=== PATIENT | female | born 1955 | race Caucasian/White ===

== ENCOUNTER 2016-12-24 15:39 | Inpatient (IN) | payer MEDICARE, MEDICAID ==
[~2016-12-24] VITALS: Ht 157.5 cm; Wt 123.4 kg
[~2016-12-24 15:39] MED LIST: AMLO10TA2 PO; BENA10TA2 PO; FENO160T PO; FLUT16SP BNOSTRILS; FLUT1DIS3 IH; FURO-144 PO; GLIP5TAB13 PO; IPRA0.2S9 IH; LORA10CA PO; MONT10TA22 PO; NEBI5TAB8 PO; POTA10TA15 PO; PROM6.25 PO; SITA100T PO
[2016-12-24 16:08] LABS: BASOPHILS % (AUTO) 0.5 % (0.0-2.0); DIFF TOTAL % 100 %; EOSINOPHILS # (AUTO) 0.1 /CMM (0.0-0.7); EOSINOPHILS % (AUTO) 1.9 % (0.0-6.0); HEMATOCRIT 31 % (33-45); HEMOGLOBIN 9.9 g/dL (11.5-14.8); LYMPHOCYTES # (AUTO) 1.6 /CMM (0.8-4.8); LYMPHOCYTES % (AUTO) 23.2 % (20.0-44.0); MEAN CORPUSCULAR HEMOGLOBIN 26 PG (26.0-33.0); MEAN CORPUSCULAR HGB CONC 32 g/dl (31.0-36.0); MEAN CORPUSCULAR VOLUME 80 fL (82-100); MONOCYTES # (AUTO) 0.6 /CMM (0.1-1.30); NEUTROPHILS # (AUTO) 4.8 /CMM (1.8-8.9); NEUTROPHILS % (AUTO) 66.4 % (43.0-81.0); PLATELET COUNT (AUTO) 263 /CMM (150-450); RED BLOOD CELL COUNT(AUTO) 3.87 MIL/uL (4.0-5.2); WHITE BLOOD COUNT (AUTO) 7.1 K/uL (4.3-11.0)
[2016-12-24 16:19] LABS: ANION GAP 14 (5-14); CARBON DIOXIDE 25 mmol/L (21-32); CHLORIDE 105 mmol/L (98-107); CREATININE 1.7 mg/dL (0.6-1.3); GFR 31 mL/min (>60); GLUCOSE 123 mg/dL (74-106); POTASSIUM 4.2 mmol/L (3.5-5.1); SODIUM SERUM 140 mmol/L (136-145); UREA NITROGEN, BLOOD 48 mg/dL (7-18)
[2016-12-24 16:22] LABS: PROTHROMBIN TIME 10.5 SECS (9.5-12.7)
[2016-12-24 16:27] LABS: TROPONIN I < 0.017 ng/mL (0.00-0.056)
[2016-12-24 16:31] LABS: ALANINE AMINOTRANSFERASE 15 U/L (12-78); ALBUMIN 3.4 g/dL (3.4-5.0); ASPARTATE AMINOTRANSFERASE 13 U/L (15-37); BILIRUBIN,DIRECT 0.1 mg/dL (0.0-0.2); BILIRUBIN,TOTAL 0.3 mg/dL (0.2-1.0); INDIRECT BILIRUBIN 0.2 mg/dL (0.0-1.1); TOTAL PROTEIN, SERUM 7.6 g/dL (6.4-8.2)
[2016-12-24 16:38] LABS: LACTIC ACID 0.9 mmol/L (0.4-2.0)
[2016-12-24] MEDS ORDERED: ATOR10TA PO (16:52)
[2016-12-24] MEDS ORDERED: PANT40TA4 PO (16:52)
[2016-12-24] MEDS ORDERED: CARV6.252 PO (16:52)
[2016-12-24] MEDS ORDERED: MUPI22OI7 MC (16:52)
[2016-12-24] MEDS ORDERED: IPRA3AMP IH (16:52)
[2016-12-24] MEDS ORDERED: FENO145T20 PO (16:52)
[2016-12-24] MEDS ORDERED: ACETAMINOPHEN 325 MG TABLET PO PRN (17:30)
[2016-12-24] MEDS: BLOOD SUGAR DIAGNOSTIC 1 EACH STRIP IN SCH ×3 (17:30→22:00)
[2016-12-24] MEDS ORDERED: INSULIN REGULAR, HUMAN 100 UNIT/ML 3 ML VIAL SQ PRN ×2 (17:30→19:30)
[2016-12-24] MEDS ORDERED: DEXTROSE 50%-WATER 50 ML DISP.SYRIN IV PRN ×2 (17:30→19:30)
[2016-12-24] MEDS ORDERED: MORPHINE SULFATE INJ 2 MG/ML DISP.SYRIN IV PRN (17:30)
[2016-12-24] MEDS: ENOXAPARIN SODIUM 30 MG/0.3 ML DISP.SYRIN SQ SCH (17:31)
[2016-12-24] MEDS ORDERED: Medication Not On Formulary EA (Ipratropium/Albuterol Sulfate (Duoneb 2.5-0.5 Mg/3 Ml So IH PRN (18:00)
[2016-12-24] MEDS ORDERED: MUPIROCIN OINT 2% 22 GM TUBE MC PRN (18:00)
[2016-12-24] MEDS ORDERED: PROMETHAZINE HCL SYRUP 6.25 MG/5 ML UDC PO PRN (18:00)
[2016-12-24 18:01] VITALS: BP 145/80
[2016-12-24] MEDS ORDERED: LORATADINE 10 MG TABLET PO PRN (18:30)
[2016-12-24] MEDS ORDERED: ALBUTEROL FS 2.5 MG/0.5 ML VIAL.NEB NEB PRN (18:30)
[2016-12-24] MEDS: NITROGLYCERIN PACKET 1 GM PACKET TOP SCH ×2 (18:55→23:01)
[2016-12-24 20:00] VITALS: BP 132/62
[2016-12-24] MEDS: CARVEDILOL 6.25 MG TABLET PO SCH (20:20)
[2016-12-24] MEDS ORDERED: ATORVASTATIN 10 MG TABLET PO SCH (22:00)
[2016-12-24] MEDS ORDERED: BLOOD SUGAR DIAGNOSTIC 1 EACH STRIP IN SCH (22:00)
[2016-12-24] MEDS: MONTELUKAST SODIUM (10MG) 10 MG TABLET PO SCH (22:05)
[2016-12-25] VITALS: BP 123/60
[2016-12-25 04:00] VITALS: BP_SYST 126; BP_SYST 131; BP_DIAS 67; BP_DIAS 70
[2016-12-25] MEDS: NITROGLYCERIN PACKET 1 GM PACKET TOP SCH ×3 (06:11→17:24)
[2016-12-25] MEDS: BLOOD SUGAR DIAGNOSTIC 1 EACH STRIP IN SCH ×4 (06:11→21:59)
[2016-12-25 06:54] LABS: BASOPHILS % (AUTO) 0.5 % (0.0-2.0); DIFF TOTAL % 100 %; EOSINOPHILS # (AUTO) 0.2 /CMM (0.0-0.7); EOSINOPHILS % (AUTO) 2.6 % (0.0-6.0); HEMATOCRIT 29 % (33-45); HEMOGLOBIN 9.4 g/dL (11.5-14.8); LYMPHOCYTES # (AUTO) 1.2 /CMM (0.8-4.8); LYMPHOCYTES % (AUTO) 18.4 % (20.0-44.0); MEAN CORPUSCULAR HEMOGLOBIN 26 PG (26.0-33.0); MEAN CORPUSCULAR HGB CONC 33 g/dl (31.0-36.0); MEAN CORPUSCULAR VOLUME 80 fL (82-100); MONOCYTES # (AUTO) 0.6 /CMM (0.1-1.30); MONOCYTES % (AUTO) 8.6 % (2.0-12.0); NEUTROPHILS # (AUTO) 4.5 /CMM (1.8-8.9); NEUTROPHILS % (AUTO) 69.9 % (43.0-81.0); PLATELET COUNT (AUTO) 245 /CMM (150-450); RED BLOOD CELL COUNT(AUTO) 3.56 MIL/uL (4.0-5.2); WHITE BLOOD COUNT (AUTO) 6.4 K/uL (4.3-11.0)
[2016-12-25 07:14] LABS: CALCIUM, SERUM 8.9 mg/dL (8.5-10.1); CREATININE 1.5 mg/dL (0.6-1.3); POTASSIUM 4.3 mmol/L (3.5-5.1)
[2016-12-25] MEDS ORDERED: PANTOPRAZOLE 40 MG TABLET.DR PO SCH (07:30)
[2016-12-25 08:00] VITALS: BP 121/61
[2016-12-25] MEDS: PANTOPRAZOLE 40 MG TABLET.DR PO SCH (08:13)
[2016-12-25] MEDS: BENAZEPRIL HCL 10 MG TABLET PO SCH (08:14)
[2016-12-25] MEDS: SITAGLIPTIN PHOSPHATE 50 MG TABLET PO SCH (08:14)
[2016-12-25] MEDS: ASPIRIN 81 MG TAB.CHEW PO SCH (08:14)
[2016-12-25] MEDS: CARVEDILOL 6.25 MG TABLET PO SCH (08:15)
[2016-12-25] MEDS: FLUTICASONE PROPIONATE 16 GM BOTTLE NS SCH ×2 (08:18→17:19)
[2016-12-25] MEDS: FLUTICASONE/SALMETEROL DISKUS IH SCH ×2 (08:18→17:19)
[2016-12-25 08:48] LABS: IRON, SERUM 44 ug/dl (50-175); PERCENT SATURATION 10 % (14-33); TOTAL IRON BINDING CAPACITY 444 ug/dl (250-450)
[2016-12-25] MEDS ORDERED: FENOFIBRATE NANOCRYS (145 MG) 145 MG TABLET PO SCH (09:00)
[2016-12-25] MEDS ORDERED: LEVOFLOXACIN 750 MG /D5W 150ML 750 MG in PREMIX 1 EA IV SCH (09:00)
[2016-12-25] MEDS ORDERED: POTASSIUM CHLORIDE 10 MEQ TABLET.SA PO SCH (09:00)
[2016-12-25] MEDS ORDERED: FUROSEMIDE 40 MG TABLET PO SCH (09:00)
[2016-12-25] MEDS ORDERED: Medication Not On Formulary EA (Sitagliptin Phosphate (Januvia) 100 MG) PO SCH (09:00)
[2016-12-25] MEDS: DILTIAZEM HCL CD 240 MG PO SCH (09:57)
[2016-12-25] MEDS: LEVOFLOXACIN 750 MG /D5W 150ML 750 MG in PREMIX 1 EA IV SCH (09:58)
[2016-12-25] MEDS: ALBUTEROL FS 2.5 MG/0.5 ML VIAL.NEB NEB SCH ×3 (10:12→20:01)
[2016-12-25] MEDS ORDERED: IV SET PRIMARY PUMP SET 1 EA INFUS.SET MC ONE (10:17)
[2016-12-25] MEDS ORDERED: SECONDARY IV SET 1 EA INFUS.SET MC ONE (12:20)
[2016-12-25] MEDS: IV NS 0.9% 1,000 ML IV PRN (12:25)
[2016-12-25 16:00] VITALS: BP 98/49
[2016-12-25 20:00] VITALS: BP 112/62
[2016-12-25 20:35] VITALS: BP 112/62
[2016-12-25] MEDS: MONTELUKAST SODIUM (10MG) 10 MG TABLET PO SCH (21:57)
[2016-12-25] MEDS: ENOXAPARIN SODIUM 30 MG/0.3 ML DISP.SYRIN SQ SCH (21:58)
[2016-12-26] MEDS: NITROGLYCERIN PACKET 1 GM PACKET TOP SCH ×5 (00:04→23:54)
[2016-12-26] MEDS: ALBUTEROL FS 2.5 MG/0.5 ML VIAL.NEB NEB SCH ×4 (02:16→20:00)
[2016-12-26] MEDS: IV NS 0.9% 1,000 ML IV PRN ×2 (02:28→16:10)
[2016-12-26 04:00] VITALS: BP 91/37
[2016-12-26 06:58] LABS: BASOPHILS % (AUTO) 0.7 % (0.0-2.0); DIFF TOTAL % 100 %; EOSINOPHILS # (AUTO) 0.2 /CMM (0.0-0.7); EOSINOPHILS % (AUTO) 2.4 % (0.0-6.0); HEMATOCRIT 29 % (33-45); HEMOGLOBIN 9.3 g/dL (11.5-14.8); LYMPHOCYTES # (AUTO) 1.7 /CMM (0.8-4.8); LYMPHOCYTES % (AUTO) 26.2 % (20.0-44.0); MEAN CORPUSCULAR HEMOGLOBIN 26 PG (26.0-33.0); MEAN CORPUSCULAR HGB CONC 32 g/dl (31.0-36.0); MEAN CORPUSCULAR VOLUME 80 fL (82-100); MONOCYTES # (AUTO) 0.6 /CMM (0.1-1.30); MONOCYTES % (AUTO) 8.9 % (2.0-12.0); NEUTROPHILS # (AUTO) 3.9 /CMM (1.8-8.9); NEUTROPHILS % (AUTO) 61.8 % (43.0-81.0); PLATELET COUNT (AUTO) 159 /CMM (150-450); RED BLOOD CELL COUNT(AUTO) 3.57 MIL/uL (4.0-5.2); WHITE BLOOD COUNT (AUTO) 6.4 K/uL (4.3-11.0)
[2016-12-26 07:13] LABS: ALANINE AMINOTRANSFERASE 14 U/L (12-78); ALBUMIN 2.9 g/dL (3.4-5.0); ANION GAP 13 (5-14); ASPARTATE AMINOTRANSFERASE 13 U/L (15-37); BILIRUBIN,TOTAL 0.2 mg/dL (0.2-1.0); CALCIUM, SERUM 8.4 mg/dL (8.5-10.1); CARBON DIOXIDE 24 mmol/L (21-32); CHLORIDE 107 mmol/L (98-107); CREATININE 1.6 mg/dL (0.6-1.3); GFR 33 mL/min (>60); GLUCOSE 110 mg/dL (74-106); PHOSPHORUS 3.2 mg/dL (2.5-4.9); POTASSIUM 4.3 mmol/L (3.5-5.1); SODIUM SERUM 140 mmol/L (136-145); TOTAL PROTEIN, SERUM 6.7 g/dL (6.4-8.2); UREA NITROGEN, BLOOD 40 mg/dL (7-18)
[2016-12-26] MEDS: BLOOD SUGAR DIAGNOSTIC 1 EACH STRIP IN SCH ×4 (07:30→21:17)
[2016-12-26] MEDS: PANTOPRAZOLE 40 MG TABLET.DR PO SCH ×2 (07:30→11:52)
[2016-12-26 08:00] VITALS: BP 115/63
[2016-12-26] MEDS: ASPIRIN 81 MG TAB.CHEW PO SCH ×2 (08:50→11:51)
[2016-12-26] MEDS: DILTIAZEM HCL CD 240 MG PO SCH ×2 (08:50→11:52)
[2016-12-26] MEDS: BENAZEPRIL HCL 10 MG TABLET PO SCH ×2 (08:51→11:51)
[2016-12-26] MEDS: SITAGLIPTIN PHOSPHATE 50 MG TABLET PO SCH ×2 (08:51→11:52)
[2016-12-26] MEDS: FLUTICASONE/SALMETEROL DISKUS IH SCH ×2 (08:56→18:03)
[2016-12-26] MEDS: FLUTICASONE PROPIONATE 16 GM BOTTLE NS SCH ×2 (08:58→17:00)
[2016-12-26] MEDS ORDERED: SECONDARY IV SET 1 EA INFUS.SET MC ONE ×2 (09:24→13:44)
[2016-12-26] MEDS: Magnesium 1GM/D5W 100ML PREMIX 100 ML IV SCH ×2 (09:29→10:59)
[2016-12-26 10:00] VITALS: BP 108/68
[2016-12-26 10:17] LABS: TROPONIN I < 0.017 ng/mL (0.00-0.056)
[2016-12-26 12:00] VITALS: BP 110/60
[2016-12-26] MEDS: SOD FERRIC GLUC 125 MG in IV NS 0.9% 100 ML IV SCH (14:27)
[2016-12-26 16:00] VITALS: BP 124/61
[2016-12-26 20:00] VITALS: BP 98/49
[2016-12-26] MEDS: MONTELUKAST SODIUM (10MG) 10 MG TABLET PO SCH (21:18)
[2016-12-26] MEDS: ENOXAPARIN SODIUM 30 MG/0.3 ML DISP.SYRIN SQ SCH (21:18)
[2016-12-27] MEDS: ALBUTEROL FS 2.5 MG/0.5 ML VIAL.NEB NEB SCH ×4 (01:30→19:30)
[2016-12-27 04:00] VITALS: BP 107/54
[2016-12-27] MEDS: NITROGLYCERIN PACKET 1 GM PACKET TOP SCH ×3 (05:12→17:50)
[2016-12-27] MEDS: BLOOD SUGAR DIAGNOSTIC 1 EACH STRIP IN SCH ×4 (06:34→21:45)
[2016-12-27] MEDS: IPRATROPIUM NEB FS 0.5 MG/2.5 ML AMPUL.NEB NEB PRN ×2 (07:54→13:20)
[2016-12-27 08:00] VITALS: BP 140/64
[2016-12-27] MEDS: FLUTICASONE PROPIONATE 16 GM BOTTLE NS SCH ×2 (08:20→17:16)
[2016-12-27] MEDS: FLUTICASONE/SALMETEROL DISKUS IH SCH ×2 (08:20→17:16)
[2016-12-27] MEDS: LEVOFLOXACIN 750 MG /D5W 150ML 750 MG in PREMIX 1 EA IV SCH (09:08)
[2016-12-27] MEDS ORDERED: PEG 3350/NA SULF,BICARB,CL/KCL 4,000 ML BOTTLE PO ONE (11:00)
[2016-12-27] MEDS ORDERED: SECONDARY IV SET 1 EA INFUS.SET MC ONE (14:31)
[2016-12-27] MEDS: SOD FERRIC GLUC 125 MG in IV NS 0.9% 100 ML IV SCH (14:32)
[2016-12-27 16:00] VITALS: BP 120/60
[2016-12-27 20:00] VITALS: BP 130/79
[2016-12-27] MEDS: ENOXAPARIN SODIUM 30 MG/0.3 ML DISP.SYRIN SQ SCH (21:00)
[2016-12-27] MEDS: MONTELUKAST SODIUM (10MG) 10 MG TABLET PO SCH (21:57)
[2016-12-28] MEDS: NITROGLYCERIN PACKET 1 GM PACKET TOP SCH ×5 (00:09→23:37)
[2016-12-28] MEDS: ALBUTEROL FS 2.5 MG/0.5 ML VIAL.NEB NEB SCH ×4 (01:28→19:59)
[2016-12-28 04:00] VITALS: BP 120/63
[2016-12-28] MEDS: BLOOD SUGAR DIAGNOSTIC 1 EACH STRIP IN SCH ×4 (07:00→21:18)
[2016-12-28 08:00] VITALS: BP 141/66
[2016-12-28 08:21] VITALS: BP 141/66
[2016-12-28] MEDS: FLUTICASONE PROPIONATE 16 GM BOTTLE NS SCH ×2 (08:30→17:38)
[2016-12-28] MEDS: FLUTICASONE/SALMETEROL DISKUS IH SCH ×2 (08:30→17:38)
[2016-12-28] MEDS: ASPIRIN 81 MG TAB.CHEW PO SCH (08:30)
[2016-12-28] MEDS: PANTOPRAZOLE 40 MG TABLET.DR PO SCH (08:30)
[2016-12-28] MEDS: DILTIAZEM HCL CD 240 MG PO SCH (08:31)
[2016-12-28] MEDS: SITAGLIPTIN PHOSPHATE 50 MG TABLET PO SCH (08:31)
[2016-12-28] MEDS: BENAZEPRIL HCL 10 MG TABLET PO SCH (08:31)
[2016-12-28 12:00] VITALS: BP 145/68
[2016-12-28] MEDS: SOD FERRIC GLUC 125 MG in IV NS 0.9% 100 ML IV SCH (14:52)
[2016-12-28 16:00] VITALS: BP 94/63
[2016-12-28 20:00] VITALS: BP 104/58
[2016-12-28] MEDS: ENOXAPARIN SODIUM 30 MG/0.3 ML DISP.SYRIN SQ SCH (21:00)
[2016-12-28] MEDS: MONTELUKAST SODIUM (10MG) 10 MG TABLET PO SCH (21:18)
[2016-12-29] MEDS: IPRATROPIUM NEB FS 0.5 MG/2.5 ML AMPUL.NEB NEB PRN (02:15)
[2016-12-29] MEDS: ALBUTEROL FS 2.5 MG/0.5 ML VIAL.NEB NEB SCH ×3 (02:15→13:21)
[2016-12-29 04:00] VITALS: BP 94/44
[2016-12-29] MEDS: NITROGLYCERIN PACKET 1 GM PACKET TOP SCH ×2 (06:00→12:03)
[2016-12-29] MEDS: BLOOD SUGAR DIAGNOSTIC 1 EACH STRIP IN SCH ×2 (06:57→11:27)
[2016-12-29] MEDS: PANTOPRAZOLE 40 MG TABLET.DR PO SCH (07:30)
[2016-12-29 08:00] VITALS: BP 127/71
[2016-12-29] MEDS: FLUTICASONE PROPIONATE 16 GM BOTTLE NS SCH (08:30)
[2016-12-29] MEDS: FLUTICASONE/SALMETEROL DISKUS IH SCH (08:30)
[2016-12-29] MEDS: ASPIRIN 81 MG TAB.CHEW PO SCH (08:30)
[2016-12-29] MEDS: BENAZEPRIL HCL 10 MG TABLET PO SCH (08:31)
[2016-12-29] MEDS: SITAGLIPTIN PHOSPHATE 50 MG TABLET PO SCH (08:31)
[2016-12-29] MEDS: DILTIAZEM HCL CD 240 MG PO SCH (08:31)
[2016-12-29] MEDS ORDERED: CLOTRIMAZOLE 1% 15 GM TUBE TP SCH (11:00)
[2016-12-29] MEDS ORDERED: SECONDARY IV SET 1 EA INFUS.SET MC ONE (11:17)
[2016-12-29] MEDS ORDERED: IV SET PRIMARY PUMP SET 1 EA INFUS.SET MC ONE ×2 (11:17→11:38)
[2016-12-29] MEDS: LEVOFLOXACIN 750 MG /D5W 150ML 750 MG in PREMIX 1 EA IV SCH (11:27)
[2016-12-29 12:03] VITALS: BP 138/75
[2016-12-29] MEDS: SOD FERRIC GLUC 125 MG in IV NS 0.9% 100 ML IV SCH (13:58)
== END 2016-12-29 15:23 | DRG 202 ==
LOC: ER 15:41 → TELE1 17:00 → MEDSG1 12-25 09:02
PROVIDERS: ADMIT Legal Medicine; ATTEND Legal Medicine
PROC: 0DB68ZX Excision of Stomach, Via Natural or Artificial Opening Endoscopic, Diagnostic (ICD-10-PCS; 2016-12-26)
PROC: 0DBP8ZX Excision of Rectum, Via Natural or Artificial Opening Endoscopic, Diagnostic (ICD-10-PCS; principal; 2016-12-28)
PROC: 0DBE8ZX Excision of Large Intestine, Via Natural or Artificial Opening Endoscopic, Diagnostic (ICD-10-PCS; 2016-12-28)
DX: J20.9 Acute bronchitis, unspecified (principal); Z68.42 Body mass index [BMI] 45.0-49.9, adult; J44.0 Chronic obstructive pulmonary disease with (acute) lower respiratory infection; I50.22 Chronic systolic (congestive) heart failure; E44.1 Mild protein-calorie malnutrition; E11.9 Type 2 diabetes mellitus without complications; K21.9 Gastro-esophageal reflux disease without esophagitis; J45.909 Unspecified asthma, uncomplicated; G47.33 Obstructive sleep apnea (adult) (pediatric); D50.9 Iron deficiency anemia, unspecified; E66.9 Obesity, unspecified; E66.01 Morbid (severe) obesity due to excess calories; F79 Unspecified intellectual disabilities; I11.0 Hypertensive heart disease with heart failure
CPT/HCPCS: 36415; 71010-TC; 80048-TC; 80053-TC; 80061-TC; 80076-TC; 82728-TC; 82962-TC; 83540-TC; 83605-TC; 83735-TC; 83880; 84100-TC; 84484-TC; 85025-TC; 85730-TC; 87040-TC; 87081-TC; 88305-TC; 88313-TC; 88342; 93307-TC; A4216; A4606; J1650; J1815; J1956; J2916; J3475; J7030; Q0169; Z7610